=== PATIENT | female | born 1965 | race Hispanic/Latino ===

== ENCOUNTER → 2020-03-24 | Outpatient (CLI) | payer BC ==
[~2020-03-24] MED LIST: CLARITIN-D 241 EACH PO; MINOCYCLINE HCL50 MG PO
--- NOTE | 2020-03-24 12:03 | Diagnostic Imaging Report ---
EXAM: MRI of the abdomen without contrast with MRCP INDICATION: Abdominal pain constipation,. COMPARISON: None. TECHNIQUE: Multiplanar and multisequence imaging was performed of the abdomen. T1 and T2-weighted images were obtained with and without contrast. T1-weighted in and [id number]. M.R.C.P. technique: Multiplanar, multisequence MRCP was performed, with sequences including coronal turbo spin-echo T1-weighted scans, [facility] MRCP scans, coronal spin, coronal MPR 2, SMRCP 3D HR, [facility] MRCP [place]. Discussion: LOWER THORAX: Unremarkable. HEPATOBILIARY: There is focal fatty infiltration adjacent to the falciform ligament. No focal hepatic lesions. No biliary ductal dilation. GALLBLADDER: There are cholecystectomy clips. SPLEEN: No splenomegaly. PANCREAS: No focal masses or ductal dilatation. ADRENALS: No adrenal nodules KIDNEYS/URETERS: No hydronephrosis. No solid mass lesions. 9 mm cyst in the anterior upper pole of the right kidney. GI TRACT: No abnormal distention, wall thickening, or evidence of bowel obstruction. LYMPH NODES: No lymphadenopathy. VESSELS: Unremarkable. PERITONEUM / RETROPERITONEUM: No free air or fluid. BONES: Unremarkable. SOFT TISSUES: Unremarkable. IMPRESSION: Hepatic steatosis. Prior cholecystectomy No biliary ductal dilation, obstructing mass or choledocholithiasis. Signed by: Zacahry Thomas MD on 03/24/2020 12:00 PM
== END ==
LOC: MRI 09:30
PROVIDERS: ATTEND Internal Medicine Gastroenterology
DX: K59.00 Constipation, unspecified (principal); L29.9 Pruritus, unspecified; K80.50 Calculus of bile duct without cholangitis or cholecystitis without obstruction; R74.8 Abnormal levels of other serum enzymes; Z71.3 Dietary counseling and surveillance; E66.3 Overweight
CPT/HCPCS: 74181

== ENCOUNTER → 2021-02-09 | Day surgery (SDC) | payer BC ==
[~2021-02-09] MED LIST changes: +CLINDAMYCIN 600MG / 50ML 50 ML IV ONE; +DIPHENHYDRAMINE HCL 25 MG CAP PO ONE; +DYMISTA NASAL S23 GM INH; +FENTANYL CITRATE/PF 100MCG/2 ML INJ ONE; +LEVOCETIRIZINE D5 MG PO; +MONTELUKAST SOD10 MG PO; +NEXIUM40 MG PO; +PROVENTIL HFA6.7 GM INH
[2021-02-09 10:50] VITALS: BP 133/69
== END | disposition home or self-care (01) ==
LOC: OR 07:25
PROVIDERS: ATTEND Specialist
DX: G56.01 Carpal tunnel syndrome, right upper limb (principal); J45.909 Unspecified asthma, uncomplicated; K21.9 Gastro-esophageal reflux disease without esophagitis; K76.0 Fatty (change of) liver, not elsewhere classified; K57.90 Diverticulosis of intestine, part unspecified, without perforation or abscess without bleeding; Z88.1 Allergy status to other antibiotic agents; Z88.0 Allergy status to penicillin; Z01.810 Encounter for preprocedural cardiovascular examination; Z01.812 Encounter for preprocedural laboratory examination; Z20.822 Contact with and (suspected) exposure to COVID-19
CPT/HCPCS: 29848; 93005; J3010; U0002

== ENCOUNTER 2022-07-08 12:34 | Emergency (ER) | payer BC, OTHER ==
[~2022-07-08] VITALS: Ht 152.4 cm; Wt 68.9 kg
[~2022-07-08 12:34] MED LIST changes: -CLINDAMYCIN 600MG / 50ML 50 ML IV ONE; -DIPHENHYDRAMINE HCL 25 MG CAP PO ONE; -FENTANYL CITRATE/PF 100MCG/2 ML INJ ONE
[2022-07-08] MEDS ORDERED: SODIUM CHLORIDE 0.9% 1000ML 1,000 ML IV ONE (14:00)
[2022-07-08] MEDS ORDERED: ONDANSETRON HCL INJ 2MG/ML 2ML 2 MG/ML VIAL IV PRN (14:00)
[2022-07-08 14:13] LABS: BASOPHILS % 0.3 % (0.0-1.0); EOSINOPHILS # (AUTO) 0.1 (0.0-0.4); EOSINOPHILS % 0.6 % (0.0-6.0); HEMATOCRIT 47.6 % (34.2-44.1); HEMOGLOBIN 16.2 g/dL (12.0-16.0); LYMPHOCYTES # (AUTO) 2.4 (1.0-3.2); LYMPHOCYTES % 26.5 % (18.0-39.1); MEAN CORPUSCULAR HEMOGLOBIN 31.3 pg (28-32); MEAN CORPUSCULAR VOLUME 92.1 fL (81-99); MONOCYTES # (AUTO) 0.6 (0.2-0.8); MONOCYTES % 7.1 % (4.4-11.3); NEUTROPHILS # (AUTO) 5.8 (2.1-6.9); NEUTROPHILS % 65.2 % (38.7-80.0); PLATELET COUNT 328 x10e3/uL (140-360); RED BLOOD COUNT 5.17 x10e6/uL (3.6-5.1); RED CELL DISTRIBUTION WIDTH 12.1 % (11.7-14.4)
[2022-07-08 14:25] LABS: ALBUMIN 3.7 g/dL (3.5-5.0); ANION GAP 16.6 mmol/L (8-16); CREATININE, SERUM 0.99 mg/dL (0.57-1.11); POTASSIUM 3.6 mmol/L (3.5-5.1)
[2022-07-08] MEDS ORDERED: HYDROCODONE/APAP 5MG-325MG TAB PO ONE (14:30)
[2022-07-08 14:40] LABS: WBC,FECAL (FECAL LACTOFERRIN) POSITIVE (NEGATIVE)
[2022-07-08 14:41] LABS: OCCULT BLOOD STOOL POSITIVE (NEGATIVE)
[2022-07-08] MEDS ORDERED: IOPAMIDOL 370 MG/ML 100 ML INFUS..BTL INJ ONE (14:48)
[2022-07-08] MEDS ORDERED: METRONIDAZOLE 500 MG TAB PO ONE (15:30)
[2022-07-08] MEDS ORDERED: ONDANSETRON ODT4 MG PO (15:46)
[2022-07-08] MEDS ORDERED: METRONIDAZOLE500 MG PO (15:46)
[2022-07-08] MEDS ORDERED: DICYCLOMINE HCL20 MG PO (15:46)
[2022-07-08] MEDS ORDERED: CIPRO500 MG PO (15:46)
[2022-07-08] MEDS ORDERED: CIPROFLOXACIN 500 MG TAB PO SCH (16:00)
[2022-07-08 16:50] VITALS: BP 129/81
== END 2022-07-08 16:51 | disposition home or self-care (01) ==
LOC: ER 12:46
DX: R11.2 Nausea with vomiting, unspecified (principal); K52.9 Noninfective gastroenteritis and colitis, unspecified; E86.0 Dehydration; I12.0 Hypertensive chronic kidney disease with stage 5 chronic kidney disease or end stage renal disease; N18.6 End stage renal disease
CPT/HCPCS: 36415; 74177; 80053; 82270; 83630; 83690; 85025; 87324; 87449; 99284; J2405; J7030; Q9967

== ENCOUNTER → 2022-11-15 | Day surgery (SDC) | payer OTHER ==
[2022-11-10 13:37] LABS: ANION GAP 16.1 mmol/L (8-16); CALCIUM 9.5 mg/dL (8.4-10.2); CREATININE, SERUM 0.71 mg/dL (0.57-1.11); POTASSIUM 4.1 mmol/L (3.5-5.1)
[~2022-11-15] MED LIST changes: +BUPIVACAINE HCL 0.5% INJ 30 ML VIAL INJ ONE; +CIPRO500 MG PO; +CLINDAMYCIN 600MG / 50ML 50 ML IV ONE; +CLINDAMYCIN PHOS 900MG/ 50ML 50 ML IV ONE; +DEXAMETHASONE SOD PHOS INJ 4 MG/ML SDV ONE; +DEXTROSE 5% 250ML 250 ML IV ONE; +DICYCLOMINE HCL20 MG PO; +DIPHENHYDRAMINE HCL INJ 50 MG/ML VIAL ONE; +FENTANYL CITRATE/PF 100MCG/2 ML INJ ONE; +HYDROCODONE/APAP 5MG-325MG TAB ONE; +LACTATED RINGER'S 1,000 ML ONE; +LIDOCAINE HCL 2% LOCAL INJ 5 ML SDV VIAL INJ ONE; +LIPITOR10 MG PO; +METFORMIN HCL500 M2 PO; +METRONIDAZOLE500 MG PO; +MIDAZOLAM HCL 2 MG/2 ML VIAL ONE; +NEOSTIGMINE 1 MG/ML 10ML VIAL ONE; +OMEPRAZOLE40 MG PO; +ONDANSETRON HCL INJ 2MG/ML 2ML 2 MG/ML VIAL ONE; +ONDANSETRON ODT4 MG PO; +POVIDONE IODINE 0.05% 0.05 % ML PO ONE; +PROPOFOL IV EMULSION 10 MG/ML 20 ML VIAL ONE; +SEVOFLURANE INHAL SOLN 250 ML PEN BTL ONE
[2022-11-15] MEDS: FENTANYL CITRATE/PF 100MCG/2 ML INJ ONE ×2 (13:30→13:40)
[2022-11-15 14:15] VITALS: BP 149/89; PULSE 59; RESP 16; O2SAT 98
== END | disposition home or self-care (01) ==
LOC: OR 09:15
PROVIDERS: ATTEND Podiatrist Foot & Ankle Surgery
DX: M20.41 Other hammer toe(s) (acquired), right foot (principal); M21.171 Varus deformity, not elsewhere classified, right ankle; E11.9 Type 2 diabetes mellitus without complications; G62.9 Polyneuropathy, unspecified; J45.909 Unspecified asthma, uncomplicated; E78.00 Pure hypercholesterolemia, unspecified; K21.9 Gastro-esophageal reflux disease without esophagitis; K76.9 Liver disease, unspecified; Z88.6 Allergy status to analgesic agent; Z88.1 Allergy status to other antibiotic agents; Z88.0 Allergy status to penicillin; Z91.018 Allergy to other foods; Z01.810 Encounter for preprocedural cardiovascular examination; Z01.812 Encounter for preprocedural laboratory examination; Z79.84 Long term (current) use of oral hypoglycemic drugs; Z79.899 Other long term (current) drug therapy
CPT/HCPCS: 28285 ×4; 36415 ×2; 76000; 80048; 82948; 93005; C1762; J1100; J1200; J2001; J2250; J2405; J2704; J3010; J7070; J7121; J2710

== ENCOUNTER 2024-10-29 06:55 | Outpatient (RCR) | payer OTHER ==
[~2024-10-29 06:55] MED LIST changes: +ASPIRIN CHEW81 MG PO; -BUPIVACAINE HCL 0.5% INJ 30 ML VIAL INJ ONE; +CARBAMAZEPINE200 MG PO; -CLINDAMYCIN 600MG / 50ML 50 ML IV ONE; -CLINDAMYCIN PHOS 900MG/ 50ML 50 ML IV ONE; -DEXAMETHASONE SOD PHOS INJ 4 MG/ML SDV ONE; -DEXTROSE 5% 250ML 250 ML IV ONE; +DICYCLOMINE HCL10 MG PO; -DIPHENHYDRAMINE HCL INJ 50 MG/ML VIAL ONE; +EPIPEN JR0.15 MG/01 IM; +FAMOTIDINE20 MG PO; -FENTANYL CITRATE/PF 100MCG/2 ML INJ ONE; +FIORICET 50-301 EACH PO; -HYDROCODONE/APAP 5MG-325MG TAB ONE; +ICOSAPENT ETHYL1 GM PO; +JANUVIA100 MG PO; -LACTATED RINGER'S 1,000 ML ONE; -LIDOCAINE HCL 2% LOCAL INJ 5 ML SDV VIAL INJ ONE; +LIVALO4 MG PO; +LORATADINE10 MG PO; +LOSARTAN POTASS25 MG PO; +LYRICA150 MG PO; -MIDAZOLAM HCL 2 MG/2 ML VIAL ONE; -NEOSTIGMINE 1 MG/ML 10ML VIAL ONE; -ONDANSETRON HCL INJ 2MG/ML 2ML 2 MG/ML VIAL ONE; -POVIDONE IODINE 0.05% 0.05 % ML PO ONE; -PROPOFOL IV EMULSION 10 MG/ML 20 ML VIAL ONE; +PROTONIX20 MG PO; +SENOKOT8.6 MG PO; -SEVOFLURANE INHAL SOLN 250 ML PEN BTL ONE
== END 2024-11-18 ==
LOC: PT 06:55
PROVIDERS: ATTEND Orthopaedic Surgery Orthopaedic Trauma
DX: M70.61 Trochanteric bursitis, right hip (principal); Z98.1 Arthrodesis status

== ENCOUNTER 2024-10-30 19:47 | Emergency (ER) | payer OTHER ==
[~2024-10-30] VITALS: Ht 304.8 cm; Wt 57.2 kg
[2024-10-30 21:10] LABS: BASOPHILS % 0.4 % (0.0-1.0); EOSINOPHILS # (AUTO) 0.1 (0.0-0.4); HEMATOCRIT 34.7 % (34.2-44.1); HEMOGLOBIN 11.6 g/dL (12.0-16.0); LYMPHOCYTES # (AUTO) 2.9 (1.0-3.2); LYMPHOCYTES % 42.6 % (18.0-39.1); MEAN CORPUSCULAR HEMOGLOBIN 30.7 pg (28-32); MEAN CORPUSCULAR HGB CONC 33.4 g/dL (31-35); MEAN CORPUSCULAR VOLUME 91.8 fL (81-99); MONOCYTES # (AUTO) 0.6 (0.2-0.8); MONOCYTES % 8.7 % (4.4-11.3); NEUTROPHILS # (AUTO) 3.2 (2.1-6.9); PLATELET COUNT 290 x10e3/uL (140-360); RED BLOOD COUNT 3.78 x10e6/uL (3.6-5.1); RED CELL DISTRIBUTION WIDTH 13.1 % (11.7-14.4); WHITE BLOOD COUNT 6.87 x10e3/uL (4.8-10.8)
[2024-10-30 21:25] LABS: ALBUMIN 3.9 g/dL (3.5-5.0); ALBUMIN/GLOBULIN RATIO 1.3 (0.8-2.0); ANION GAP 14.8 mmol/L (8-16); BILIRUBIN,TOTAL 0.1 mg/dL (0.2-1.2); CALCIUM 9.4 mg/dL (8.4-10.2); CREATININE, SERUM 0.87 mg/dL (0.57-1.11); POTASSIUM 3.8 mmol/L (3.5-5.1); TOTAL PROTEIN 6.9 g/dL (6.5-8.1)
[2024-10-30 21:31] LABS: TROPONIN I 0.012 ng/mL (0-0.300)
[2024-10-30] MEDS ORDERED: IOPAMIDOL 370 MG/ML 100 ML INFUS..BTL INJ ONE (22:00)
[2024-10-31 00:20] VITALS: PULSE 74; RESP 18; TEMP 98; O2SAT 98
== END 2024-10-31 00:20 | disposition home or self-care (01) ==
LOC: ER 19:52
DX: R10.13 Epigastric pain (principal); R07.89 Other chest pain; I10 Essential (primary) hypertension; E11.9 Type 2 diabetes mellitus without complications; E78.5 Hyperlipidemia, unspecified; G50.0 Trigeminal neuralgia
CPT/HCPCS: 36415; 71045; 74177; 80053; 82550; 83690; 83880; 84484; 85025; 93005; 99284; Q9967